=== PATIENT | male | born 1950 | race Caucasian/White ===

== ENCOUNTER → 2017-02-06 | Outpatient (CLI) | payer OTHER | END | disposition home or self-care (01) | LOC: C.PATHSPEC 17:04 | PROVIDERS: ATTEND Urology | DX: Z00.00 Encounter for general adult medical examination without abnormal findings (principal); N40.0 Benign prostatic hyperplasia without lower urinary tract symptoms; R31.0 Gross hematuria; R97.20 Elevated prostate specific antigen [PSA] ==

== ENCOUNTER 2023-11-01 08:56 | Observation (INO) ==
--- NOTE | 2023-10-02 08:36 | PAT Medication Instructions ---
Medication Instructions Date of Service October 02, 2023 Home Medications aspirin 81 mg tablet,delayed release (Aspir-) 81 mg PO QAM esomeprazole magnesium 40 mg capsule,delayed release (Nexium) 40 mg PO QAM apixaban 2.5 mg tablet (Eliquis) 2.5 mg PO BID ascorbic acid (vitamin C) 500 mg capsule 500 mg PO QAM bempedoic acid 180 mg tablet (Nexletol) 180 mg PO QAM carbidopa 25 mg-levodopa 100 mg tablet 1 tab PO TID cholecalciferol (vitamin D3) 125 mcg (5,000 unit) capsule 125 mcg PO QAM metoprolol tartrate 50 mg tablet 50 mg PO BID ramipril 2.5 mg capsule (Altace) 5 mg PO QAM zinc sulfate 50 mg zinc (220 mg) capsule 50 mg PO HS albuterol 90 mcg/actuation aerosol inhaler 90 mcg inhalation UD PRN cetirizine 10 mg tablet (Zyrtec) 10 mg PO HS latanoprost 0.005 % eye drops 1 drp ophthalmic (eye) QPM trihexyphenidyl 2 mg tablet 2 mg PO BID vitamin A-vitamin C-vit E-min tablet 1 tab PO QAM Continue as directed albuterol 90 mcg/actuation aerosol inhaler 90 mcg inhalation UD PRN(use if needed; please bring with you to hospital day of surgery if possible) ASK your prescriber and surgeon aspirin 81 mg tablet,delayed release (Aspir-) 81 mg PO QAM apixaban 2.5 mg tablet (Eliquis) 2.5 mg PO BID(in order for spinal or epidural anesthesia, Eliquis needs to be stopped 72 hours/3 days before surgery. Please check if okay with doctor that prescribes this to you) STOP taking 2 weeks before surgery (or as soon as possible if surgery is within 2 weeks) vitamin A-vitamin C-vit E-min tablet 1 tab PO QAM DO NOT take the morning of surgery ramipril 2.5 mg capsule (Altace) 5 mg PO QAM cholecalciferol (vitamin D3) 125 mcg (5,000 unit) capsule 125 mcg PO QAM ascorbic acid (vitamin C) 500 mg capsule 500 mg PO QAM Take morning of surgery With a small sip of water, OTHERWISE NOTHING TO EAT OR DRINK AFTER MIDNIGHT: trihexyphenidyl 2 mg tablet 2 mg PO BID metoprolol tartrate 50 mg tablet 50 mg PO BID carbidopa 25 mg-levodopa 100 mg tablet 1 tab PO TID bempedoic acid 180 mg tablet (Nexletol) 180 mg PO QAM esomeprazole magnesium 40 mg capsule,delayed release (Nexium) 40 mg PO QAM Take evening before surgery trihexyphenidyl 2 mg tablet 2 mg PO BID latanoprost 0.005 % eye drops 1 drp ophthalmic (eye) QPM cetirizine 10 mg tablet (Zyrtec) 10 mg PO HS zinc sulfate 50 mg zinc (220 mg) capsule 50 mg PO HS metoprolol tartrate 50 mg tablet 50 mg PO BID carbidopa 25 mg-levodopa 100 mg tablet 1 tab PO TID Other Notes If you have any questions please call us at [phone] or [phone] or [phone] or [phone]
--- NOTE | 2023-10-07 13:01 | Anesthesiology Consultation ---
Date of Service October 07, 2023 Assessment & Plan (1) Encounter for pre-operative examination: - Infectious disease screening: Per assessment on 10/07/23: No known infectious disease contacts or current infectious disease symptoms. No noted recent Covid positive test result. - Outpatient joint assessment: Pt currently scheduled for inpatient pathway. If surgeon requests review for outpatient joint pathway, patient is not recommended candidate for outpatient joint program from anesthesia standpoint. - Apixaban instructions: patient made aware that for neuraxial anesthesia, Apixaban needs to be held 72 hours prior to surgery. Patient voiced understanding/will check if okay with prescriber. - Awaiting upcoming cardiology-ordered Echo ([facility] scheduled 10/09) and cardiology visit ([facility], scheduled 10/23). Chart Review Chart Review: Patient seen in Pre Admission Testing Teaching & Discussion Pre-Anesthesia Teaching/Discussion Notes: Instructed NPO after midnight before surgery,except medications with 15 cc of water. Medication instructions provided according to the PAT guidelines. History Surgery Operation Date: 11/01/23 09:25 Proposed Procedures p Left Total Knee Arthroplasty - Walter Duron DO Height/Weight Height: 5 ft 10 in Weight: 119.8 kg Allergies Allergy/AdvReac Type Severity Reaction Status Date / Time amoxicillin [From Augmentin] Allergy Unknown Hives Verified 10/01/23 12:35 clavulanic acid Allergy Unknown Hives Verified 10/01/23 12:35 [From Augmentin] clarithromycin [From Biaxin] AdvReac Unknown Vomiting Verified 10/01/23 12:35 Medications Home Medications Medication Instructions Recorded Confirmed Last Taken aspirin 81 mg tablet,delayed 81 mg PO QAM 06/18/19 10/01/23 Unknown release (Aspir-) esomeprazole magnesium 40 mg 40 mg PO QAM 06/18/19 10/01/23 Unknown capsule,delayed release (Nexium) apixaban 2.5 mg tablet (Eliquis) 2.5 mg PO BID 04/18/22 10/01/23 Unknown ascorbic acid (vitamin C) 500 mg 500 mg PO QAM 04/18/22 10/01/23 Unknown capsule bempedoic acid 180 mg tablet 180 mg PO QAM 04/18/22 10/01/23 Unknown (Nexletol) carbidopa 25 mg-levodopa 100 mg 1 tab PO TID 04/18/22 10/01/23 Unknown tablet cholecalciferol (vitamin D3) 125 125 mcg PO QAM 04/18/22 10/01/23 Unknown mcg (5,000 unit) capsule metoprolol tartrate 50 mg tablet 50 mg PO BID 04/18/22 10/01/23 Unknown ramipril 2.5 mg capsule (Altace) 5 mg PO QAM 04/18/22 10/01/23 Unknown zinc sulfate 50 mg zinc (220 mg) 50 mg PO HS 04/18/22 10/01/23 Unknown capsule albuterol 90 mcg/actuation aerosol 90 mcg inhalation UD PRN allergies 10/01/23 10/01/23 Unknown inhaler cetirizine 10 mg tablet (Zyrtec) 10 mg PO HS 10/01/23 10/01/23 Unknown latanoprost 0.005 % eye drops 1 drp ophthalmic (eye) QPM 10/01/23 10/01/23 Unknown trihexyphenidyl 2 mg tablet 2 mg PO BID 10/01/23 10/01/23 Unknown vitamin A-vitamin C-vit E-min 1 tab PO QAM 10/01/23 10/01/23 Unknown tablet Past Medical History Medical History Acid reflux CAD (coronary artery disease) 2005- stent x1 Follows with [facility] Chronic anemia Hgb baseline in the 12s per 2022 PCP labs Claustrophobia Environmental allergies History of DVT (deep vein thrombosis) RLE 2013 > Chronic occlusion Taking Apixaban History of elevated PSA Hyperlipidemia Noted per cardiology records, patient unsure Increased pressure in the eye No official glaucoma diagnosis per patient Kidney stones Hx Obesity Parkinson disease PVC (premature ventricular contraction) Exercise / Class Metabolic Activity II 4-5 Yardwork/Stairs/Walk up hill (one FS (no CP, no SOB)) Past Family History Family History Family/Other Heart disease Hypertension FH: uterine cancer Past Surgical History Surgical History History of arthroscopy of left knee History of arthroscopy of right knee History of cardiac cath 2001- no stents 2005- stent x1 History of colonoscopy History of detached retina repair Right (chronic right pupil dilation since) ~2006 History of eye surgery Left ("preventative for detached retina") History of MRI of brain and brain stem Brain MRI with anesthesia 06/2023- switched neurologist providers so new neur ologist wanted updated imaging/unremarkable findings Past Anesthesia History No Hx of Anesthesia Complications and No Family Hx of Anesthesia Complications History of PONV No Hx of PONV and No Hx of Motion Sickness Social History Smoking Status: Heavy tobacco smoker Do You Dip or Chew Tobacco: No Smoking End Date: Quit 20 years ago Hx Alcohol Use: Yes alcohol intake frequency: other (minimal/beer once a month at most) Hx Substance Use: No substance use type: does not use Review of Systems Patient denies chest pain, shortness of breath, dyspnea on exertion, fever, chills, cough, wheezing, palpitations. Physical Exam Vital Signs VITALS BP 125/78 P 64 TEMP 97.8 SP02 96%RA RESP 18 PHYSICAL Full cervical extension range of motion. Full TMJ range of motion. 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) Lab Results Anesthesia Preop Results Results Anesthesia Widget: WBC 7.93 K/ul (4.8-10.8) 10/07/23 Hgb 12.7 g/dl (14.0-18.0) L 10/07/23 Hct 38.5 % (42.0-52.0) L 10/07/23 Plt 283 K/uL (130-400) 10/07/23 Na 140 mmol/L (136-145) 10/07/23 K 4.3 mmol/L (3.5-5.1) 10/07/23 Cl 105 mmol/L (98-107) 10/07/23 CO2 28 mmol/L (21-32) 10/07/23 BUN 15 mg/dl (6-23) 10/07/23 Creat 1.02 mg/dl (0.6-1.4) 10/07/23 Glucose Level 93 mg/dl (70-99(Fasting)) 10/07/23 PT 11.8 Seconds (9.0-12.0) 10/07/23 PTT 29 Seconds (21-31) 10/07/23 INR 1.1 (0.9-1.1) 10/07/23 Blood Type A Positive 10/07/23 Antibody Screen NEGATIVE 10/07/23 Testing Electrocardiogram Date: 10/07/23 NSR at 64bpm. "Normal ECG" Chest X-Ray Date: 10/07/23 FINDINGS: Lung volumes are normal. Lungs are clear. There is no pneumothorax or pleural effusion. Cardiac size is at the upper limits of normal. Mediastinal contours are normal. There is no evidence for pulmonary edema. IMPRESSION: No acute cardiopulmonary findings. Stress Test Date: 10/16/18 "Stress Echocardiogram- (10/16/2018) No ischemia or infarct, EF 60%" per received 07/2022 cardiology office visit note. Attempts to obtain official report unsuccessful.
--- NOTE | 2023-10-30 07:42 | History & Physical Report ---
Date of Service October 30, 2023 Assessment & Plan (1) Osteoarthritis of left knee: We will proceed with a left total knee arthroplasty. Postoperatively he will be started on Eliquis for DVT prophylaxis and kept overnight in the hospital for postoperative medical management. He plans to have home health in [place] upon discharge. History of Present Illness Chief Complaint: Osteoarthritis of the left knee. Primary Care Provider: Hannah Santos DO Jeff is a pleasant 73-year-old male who has been dealing with chronic increasing bilateral knee pain with the left worse than the right. He has a history of left knee arthroscopy. He continues to have pain. He has been treated up in [place]. He has had extensive conservative treatment including multiple injections. He is still struggling with the knee. X-rays and clinical examination been diagnostic for chronic worsening osteoarthritis of the left knee. After failing conservative treatment, he has elected proceed with a left total knee arthroplasty. Allergies Allergy/AdvReac Type Severity Reaction Status Date / Time amoxicillin [From Augmentin] Allergy Unknown Hives Verified 10/01/23 12:35 clavulanic acid Allergy Unknown Hives Verified 10/01/23 12:35 [From Augmentin] clarithromycin [From Biaxin] AdvReac Unknown Vomiting Verified 10/01/23 12:35 Home Medications Medication Instructions Recorded Confirmed Type aspirin 81 mg tablet,delayed 81 mg PO QAM 06/18/19 10/01/23 History release (Aspir-) esomeprazole magnesium 40 mg 40 mg PO QAM 06/18/19 10/01/23 History capsule,delayed release (Nexium) apixaban 2.5 mg tablet (Eliquis) 2.5 mg PO BID 04/18/22 10/01/23 History ascorbic acid (vitamin C) 500 mg 500 mg PO QAM 04/18/22 10/01/23 History capsule bempedoic acid 180 mg tablet 180 mg PO QAM 04/18/22 10/01/23 History (Nexletol) carbidopa 25 mg-levodopa 100 mg 1 tab PO TID 04/18/22 10/01/23 History tablet cholecalciferol (vitamin D3) 125 125 mcg PO QAM 04/18/22 10/01/23 History mcg (5,000 unit) capsule metoprolol tartrate 50 mg tablet 50 mg PO BID 04/18/22 10/01/23 History ramipril 2.5 mg capsule (Altace) 5 mg PO QAM 04/18/22 10/01/23 History zinc sulfate 50 mg zinc (220 mg) 50 mg PO HS 04/18/22 10/01/23 History capsule albuterol 90 mcg/actuation aerosol 90 mcg inhalation UD PRN allergies 10/01/23 10/01/23 History inhaler cetirizine 10 mg tablet (Zyrtec) 10 mg PO HS 10/01/23 10/01/23 History latanoprost 0.005 % eye drops 1 drp ophthalmic (eye) QPM 10/01/23 10/01/23 History trihexyphenidyl 2 mg tablet 2 mg PO BID 10/01/23 10/01/23 History vitamin A-vitamin C-vit E-min 1 tab PO QAM 10/01/23 10/01/23 History tablet 3-in-1 Commode #1 ea 10/09/23 Rx Past Med/Surg History Medical History Chronic anemia Hgb baseline in the 12s per 2022 PCP labs Obesity CAD (coronary artery disease) 2005- stent x1 Follows with [facility] Increased pressure in the eye No official glaucoma diagnosis per patient Claustrophobia History of elevated PSA Environmental allergies PVC (premature ventricular contraction) History of DVT (deep vein thrombosis) RLE 2012 > Chronic occlusion Taking Apixaban Acid reflux Parkinson disease Kidney stones Hx Hyperlipidemia Noted per cardiology records, patient unsure Surgical History History of MRI of brain and brain stem Brain MRI with anesthesia 06/2023- switched neurologist providers so new neurologist wanted updated imaging/unremarkable findings History of eye surgery Left ("preventative for detached retina") History of detached retina repair Right (chronic right pupil dilation since) ~2006 History of arthroscopy of left knee History of arthroscopy of right knee History of colonoscopy History of cardiac cath 2000- no stents 2005- stent x1 Family History Family/Other Heart disease Hypertension FH: uterine cancer Social History Smoking Status: Heavy tobacco smoker Tobacco Type: Cigarettes Do You Dip or Chew Tobacco: No; Hx Alcohol Use: Yes Hx Substance Use: No Preferred Language: [place]at[place] Communication Ability: Effective Communication Ability Comment: pt gives verbal perm for to do phone int/requests added as hippa. Boarder Steam Required: No Beliefs That Will Affect Care: None marital status: Current Living Situation: Spouse Feels Safe at Home: Yes Assistive Devices: Glasses Review of Systems All systems reviewed & are unremarkable except as noted in HPI & below. Physical Exam On physical examination left knee, he has a slight varus deformity. He has tenderness to palpation over the medial joint line and over the distal medial femoral condyle.. Constitutional WD/WN, vitals as above Eyes PERRL, conjunctivae normal, anicteric sclerae ENMT external ear and nose normal, oropharynx normal Neck trachea midline, no thyromegaly Respiratory normal respiratory effort Cardiovascular RRR, no murmur, no edema Gastrointestinal (Abdomen) normal bowel sounds, soft, nontender, no hepatosplenomegaly Psychiatric A+Ox3, euthymic affect Results & Data Results & Data Laboratory Results . Diagnostic Findings X-rays of the left knee show advanced osteoarthritis with joint space narrowing, osteophyte formation, and [id number] articulation. PG Care Time/CCT Total # of Minutes Spent Total Time Spent with Patient: Total time spent is greater than 50% in coordination of care (as documented) at patient's floor/unit and/or counseling patient: Coding Level of Care Code None Diagnoses Osteoarthritis of left knee M17.12
[~2023-11-01 08:56] MED LIST: BUPIVACAINE 0.5 % 5 MG/1 ML PF 10ML VIAL ONE; ROPIVACAINE 0.5% 5 MG/ML 30 ML VIAL ONE; ceFAZolin 2000MG 2,000 MG/15 ML SYR IV SCH
[2023-11-01] MEDS ORDERED: PROPOFOL IV EMULSION 10 MG/ML 20 ML VIAL IV ONE ×2 (09:58→11:51)
[2023-11-01] MEDS ORDERED: MIDAZOLAM HCL 1 MG/ML 2ML VIAL ONE ×2 (09:58)
[2023-11-01] MEDS ORDERED: ONDANSETRON INJ 2 MG/ML 2 ML VIAL ONE (09:58)
[2023-11-01] MEDS: LR 60ML/HR IV SCH (10:24)
[2023-11-01] MEDS: LR 500ML BOLUS, THEN 15ML/HR IV SCH (10:24)
[2023-11-01] MEDS: GABAPENTIN 300 MG CAP PO SCH (10:26)
[2023-11-01] MEDS: FAMOTIDINE 20 MG TAB PO SCH (10:26)
[2023-11-01] MEDS: ACETAMINOPHEN 500 MG TAB PO SCH ×2 (10:26→14:26)
[2023-11-01] MEDS: dexAMETHasone**PF** 10 MG/ML VIAL IV SCH (10:26)
[2023-11-01] MEDS ORDERED: Nursing to Pharmacy Communication SCH (10:30)
[2023-11-01] MEDS: TRANEXAMIC ACID 1,000 MG **IV Pre-op IV SCH (11:07)
--- NOTE | 2023-11-01 11:13 | History & Physical Bridge Note ---
Date of Service November 01, 2023 History & Physical Bridge Note I have examined the patient, reviewed the History & Physical and in the interval since the performance of the History & Physical I have noted the following changes of clinical significance: no changes noted
[2023-11-01] MEDS ORDERED: fentaNYL citrate PF 100 MCG/2 ML VIAL ONE (11:41)
[2023-11-01] MEDS: ceFAZolin 2000MG 2,000 MG/15 ML SYR IV SCH ×2 (11:49→18:33)
[2023-11-01] MEDS: ROPIV 0.5% 246mg, Ketorolac 30mg, EPINEPHrine 0.5mg in NSS INFIL SCH (11:50)
[2023-11-01] MEDS ORDERED: ePHEDrine sulfate 50 MG/5 ML SYR ONE (11:51)
[2023-11-01] MEDS: TRANEXAMIC ACID 1,000 MG **IV Intra-op IV SCH (12:26)
--- NOTE | 2023-11-01 12:32 | Operative Report ---
PG Post Operative Report Pre & Post Diagnosis Operation Date: 11/01/23 11:00 Pre-Op Diagnosis: Left Knee Degenerative Joint Disease Post-Op Diagnosis: Left Knee Degenerative Joint Disease I identified the patient and participated in the time-out.: Yes Procedure Operation Date: 11/01/23 11:00 Actual Procedures p Left Total Knee Arthroplasty(Left) - Walter Duron DO Surgeon Walter Duron DO Senior Landscape Architect Walter Hillman PA-C Estimated Blood Loss 30 Findings Consistent with Post-Op Diagnosis Specimens Left femoral tibial bone Description of Procedure Implants used: I used a Arnol Persona total knee arthroplasty system with a size 9 standard PS femur, F tibia, 34 oval patella, and a size 12 CPS polyethylene bearing. All components were cemented in place with Biomet cement. Jeff nereida [facility] for the above procedure. He was seen in the preoperative holding area and the operative extremity was identified and signed. He was given a preoperative antibiotic, TXA, a spinal anesthetic and an adductor nerve block. He was taken back to the operating room and laid on the table in supine position. He was given basic sedation. The operative knee was then prepped and draped in sterile fashion. A timeout was done, and the patient and the operative extremity was properly identified. A midline incision was made directly over the patella. Dissection was taken down to the extensor mechanism. A medial parapatellar arthrotomy was used. The medial retinaculum was released and the fat pad was mostly excised. The knee was flexed and the ACL, PCL, and meniscus were removed. A drill was sent down the center of the femoral canal followed by an intramedullary carmine. Off that carmine a distal femoral cutting block was placed. 9 mm was resected off the distal femur at 5 of valgus. A posterior referencing AP sizing guide was then placed on the distal femur. The femur measured to be a size 9. 2 drill holes were placed in 3 of external rotation. A 4-in-1 cutting block was then impacted into place. Anterior, posterior, and chamfer cuts were then made. The proximal tibia was then exposed. An external tibial alignment guide was placed. A tibial cut guide was then anchored in place and the proximal tibia was then resected. The posterior aspect of the knee was then opened up and any additional meniscus fragments and osteophytes were removed. The tibia measured to be a size F. The tibial plate was then placed in the appropriate rotation and the tibia was drilled and punched. Trial components were then placed. I used a size 12 CPS polyethylene insert. The knee was brought through a full range of motion and felt to be stable. The peg holes for the femoral component were then drilled. The patella was then everted and 9 mm was resected off the posterior aspect of the patella. The patella measured to be a size 34 oval. 3 peg holes were then drilled. A trial patella was placed. The knee was once again brought through a full range of motion and felt to be stable. Trial components were then removed. The surrounding soft tissues were injected with 100 cc of an orthopedic pain control cocktail. All components were then cemented into place with Biomet cement. The final polyethylene insert was then snapped into place. Once cement was dry the tourniquet was deflated. Hemostasis was obtained. A dilute betadyne lavage was then done for 3 minutes. The joint was then irrigated with normal saline solution. The medial parapatellar arthrotomy was then closed with #1 Vicryl suture. The skin was closed with 2-0 Vicryl, 3-0V lock suture, and joanna. A soft compressive dressing was placed. He was then transferred to a hospital bed and taken to the postanesthesia care unit in stable condition. He tolerated the procedure well. Walter Hillman PA-C, was present for the entire procedure. He was critical for patient positioning, prepping, draping, retraction exposure, wound closure and application of sterile dressing. I attest to the content of the Intraoperative Record and any orders documented therein. Any exceptions are noted below.
--- NOTE | 2023-11-01 13:19 | Anesthesiology Progress Note ---
Date of Service November 01, 2023 Anesthesia Post Procedure Vital Signs Vital Signs: Temp Pulse Resp BP Pulse Ox O2 Del Method O2 Flow Rate 11/01/23 13:10 56 L 17 111/64 100 Oxymask 4 11/01/23 13:00 58 L 14 112/59 L 100 Oxymask 6 11/01/23 12:52 36.6 C 64 16 106/63 98 Oxymask 6 11/01/23 09:50 37.0 C 59 L 20 140/90 97 Room Air Transfer of Care Handoff Completed per policy Notes Mental Status: alert / awake / arousable and participated in evaluation Patient Amnestic to Procedure: Yes Nausea / Vomiting: adequately controlled Pain: adequately controlled Airway Patency, RR, SpO2: stable & adequate BP & HR: stable & adequate Hydration State: stable & adequate Neuraxial Anesthesia: was administered and sensory block is resolving Anesthetic Complications: no major complications apparent and Pt Satisfied with anesthetic care
[2023-11-01] MEDS ORDERED: HYDROmorphone INJ 0.5 MG/0.5 ML SYR IV PRN (13:23)
[2023-11-01] MEDS ORDERED: MAGNESIUM HYDROXIDE SUSP 30 ML UDC PO PRN (13:23)
[2023-11-01] MEDS ORDERED: ONDANSETRON INJ 2 MG/ML 2 ML VIAL IV PRN (13:23)
[2023-11-01] MEDS ORDERED: bisacodyL 10 MG SUPP PR PRN (13:23)
[2023-11-01] MEDS ORDERED: NALOXONE HCL 0.4 MG/1 ML VIAL/CARP IV PRN (13:23)
[2023-11-01] MEDS ORDERED: METOCLOPRAMIDE HCL INJ 5 MG/ML 2 ML VIAL IV PRN (13:23)
[2023-11-01] MEDS: ORTHO JOINT ANESTHETIC ONE (13:24)
--- NOTE | 2023-11-01 13:35 | XRay Report ---
XR knee LT 1 or 2V routine CLINICAL HISTORY: Postoperative evaluation. COMPARISON: Left knee radiographs August 13, 2023. FINDINGS: Alignment of the total left knee arthroplasty is anatomic. There is no periprosthetic frac ture or unexpected radiopaque foreign body. There are skin joanna. IMPRESSION: Expected findings following total left knee arthroplasty. ACT 112: Negative or not required by law. Electronically signed by: Cristian Cortez M.D. 11/01/2023 1:33 PM
[2023-11-01] MEDS ORDERED: ALBUTEROL HFA 8 GM INHALER INH PRN (13:58)
[2023-11-01] MEDS: SODIUM CHLORIDE 0.9% 1,000 ML IV SCH (14:00)
[2023-11-01] MEDS: KETOROLAC TROMETHAMINE 15 MG/ML VIAL IV SCH (14:27)
[2023-11-01] MEDS: CARBIDOPA/LEVODOPA 25/100MG TAB PO SCH (14:27)
[2023-11-01] MEDS: ALLERGY Noted to ORDERED Medication SCH (14:36)
[2023-11-01] MEDS: DOCUSATE SODIUM 100 MG CAP PO SCH (20:46)
[2023-11-01] MEDS: SENNA 8.6 MG TAB PO SCH (20:46)
[2023-11-01] MEDS: ZINC SULFATE 220 MG CAPSULE PO SCH (20:49)
[2023-11-01] MEDS: TRIHEXYPHENIDYL HCL 2 MG TAB PO SCH (20:49)
[2023-11-01] MEDS: CETIRIZINE HCL 10 MG TABLET PO SCH (20:49)
[2023-11-01] MEDS: METOPROLOL TARTRATE 50 MG TAB PO SCH (20:49)
[2023-11-01] MEDS ORDERED: ZINC SULFATE 220 MG CAPSULE PO SCH (21:00)
[2023-11-01] MEDS: LATANOPROST 0.005% OP SOLN 2.5 ML BTL OP SCH (22:56)
[2023-11-01] MEDS: oxyCODONE HCL IR 5 MG TAB (IMMEDIATE RELEASE) PO PRN (23:08)
--- NOTE | 2023-11-02 06:33 | Orthopedic Progress Note ---
Date of Service November 02, 2023 Assessment & Plan (1) Status post left knee replacement: Overall he is doing very well. He is not having much pain in the left knee. He will be seen by physical therapy today for ambulation and range of motion exercises. He is on Eliquis for DVT prophylaxis. The dressing can be changed after physical therapy today. He can be discharged home later this morning. He will follow-up with orthopedics in 2 weeks. Norman Aguilar was seen and examined at bedside this morning. Overall he is doing very well. He is not having much pain in the left knee. He has been up and ambulating to the bathroom. He has no complaints.. Review of Systems All systems reviewed & are unremarkable except as noted in HPI & below. Physical Exam On physical examination of the left knee, the dressing is clean and dry. His legs out full extension. He has active dorsiflexion plantarflexion of his left ankle.. Results & Data Results & Data Laboratory Results . Diagnostic Findings Postoperative x-rays of the left knee show the prosthesis to be in anatomic alignment without any evidence of fracture complication, or loosening.. PG Care Time/CCT Total # of Minutes Spent Total Time Spent with Patient: Total time spent is greater than 50% in coordination of care (as documented) at patient's floor/unit and/or counseling patient: Coding Level of Care Code 68267 Post Operative Follow-Up Diagnoses Status post left knee replacement Z96.652
--- NOTE | 2023-11-02 06:34 | Discharge Summary ---
Date of Service November 02, 2023 Admission HPI (Per Admitting) Jeff is a pleasant 73-year-old male who has been dealing with chronic increasing bilateral knee pain with the left worse than the right. He has a history of left knee arthroscopy. He continues to have pain. He has been treated up in [place]. He has had extensive conservative treatment including multiple injections. He is still struggling with the knee. X-rays and clinical examination been diagnostic for chronic worsening osteoarthritis of the left knee. After failing conservative treatment, he has elected proceed with a left total knee arthroplasty. Admission Exam (Per Admitting) On physical examination left knee, he has a slight varus deformity. He has tenderness to palpation over the medial joint line and over the distal medial femoral condyle.. Principal Diagnosis Same as "Discharge Diagnosis" noted below under Discharge Instructions. Discharge Exam On physical examination of the left knee, the dressing is clean and dry. His legs out full extension. He has active dorsiflexion plantarflexion of his left ankle.. Discharge Data Procedures Performed Operation Date: 11/01/23 11:00 Actual Procedures p Left Total Knee Arthroplasty(Left) - Walter Duron DO Ordered Studies 11/01/23 05:00 US - OR guided needle placemen Routine Hospital Course (1) Status post left knee replacement: On November 01, [address] [facility] and underwent a left knee replacement without complication. He had a spinal anesthetic. Postope ratively he was started on Eliquis for DVT prophylaxis and transferred to the general orthopedic floors. His hospital course was uneventful. On postop day #1, his vital signs were stable and his pain was well-controlled. He was able to participate well with physical therapy doing ambulation and range of motion exercises. He was then discharged home. He will follow-up with orthopedics in 2 weeks. PG Care Time/CCT Total # of Minutes Spent Total Time Spent with Patient: Total time spent is greater than 50% in coordination of care (as documented) at patient's floor/unit and/or counseling patient: Discharge Plan Discharge Items Patient Disposition: Home - Self-Care Reason For Visit: Left Knee Degenerative Joint Disease Discharge Diagnosis: Left knee replacement Activity: Per Instructions section Non-emergency contact: Surgeon Call non-emergency contact if: your wound has increased redness and your wound has increased drainage Follow-up/Referrals: Hannah Santos DO [Primary Care Provider] - Diet: Regular Addtl Attending Provider Instructions: Activity and Therapy Recommendations: * If you are using [facility] then therapy will be provided at your home until they feel you have accomplished all of your goals. * If you are using [facility] then Physical Therapy will be provided until they feel you are ready to start Outpatient Physical Therapy. * If you are not using home therapy then Outpatient Physical Therapy should start about 3-5 days from your day of surgery. Therapy will last about 6-10 weeks * It is important not to put a pillow under your knee when you are relaxing or sleeping. It is just as important to make sure you are getting your knee perfectly straight as it is to regain your knee bend. * You were shown a series of exercises in the hospital. Do these exercises three times each day including the exercises you were shown in physical therapy. * Get up and walk several times each day. For the first four weeks, try not to stand or walk for more than one hour at a time. If you do stand or walk for more than one hour, you will not hurt anything, but your leg will likely swell. * As you feel comfortable, you may change from the walker or crutches to a cane and then to independent walking. Medications: * Narcotic You will likely be sent home from the hospital with a prescription for the narcotic pain medication that worked best throughout your stay. * Cefadroxil -take the antibiotic twice a day for 10 days to help prevent infection. * Eliquis -continue Eliquis as prescribed * Other medications may be prescribed for specific circumstances. If you have any questions, please call the office at . * Resume previous home medications unless otherwise instructed TEDs/Elastic Stockings: The white elastic stockings help limit swelling and prevent blood clots from forming in your legs.~ The more you wear them, the more they work. Wear them for six weeks. Dressing Care: The dressing can be changed after physical therapy on postop day #1. Daily dry dressing changes for a few days, especially if the incision is still draining some. If the incision is not draining then you may leave the joanna open to air. If there is a little bit of drainage or if the joanna are getting stuck on your clothing then cover the incision with a dry dressing. The joanna will be removed at your 2 week follow-up appointment. Showering: You may shower 5 days from the day of surgery as long as the incision is no longer draining. You may shower with the joanna exposed. Let soapy water run over the joanna and pat them dry. Do not scrub or soak the incision. Things To Watch For: * Drainage from the incision site that occurs more than one week after your surgery. * Increased redness at the incision site. * Fever above 102 degrees Fahrenheit. * Unusual chest pain or shortness of breath. * Call [facility] at with any of the above problems Follow-Up Visit: Follow-up with Dr. Duron's PA (Walter Hillman) 2-3 weeks after your day of surgery. He will remove your joanna and answer any questions. If you have any additional questions or concerns, Dr Duorn is usually in the office at the same time and will be available An appointment was probably scheduled when you signed-up for surgery in the office. If you have any questions call Office Instructions: More detailed instructions as well as Frequently Asked Questions were provided in a folder by our office when you signed-up for surgery. Please review these instructions when you get home. If you have any further questions or concerns, please feel free to call the office at [phone] Pending Studies at Discharge: No Stand-Alone Forms: My [facility], Smoking Cessation Medications and DC Order Prescriptions: New oxycodone 5 mg Tablet 5 mg PO Q4H PRN (Reason: pain) Qty: 30 0RF cefadroxil 500 mg capsule 500 mg PO BID 10 Days Qty: 20 0RF Continued (DME) 3-in-1 Commode Misc See Rx Instructions .MEDSUPPLY Qty: 1 0RF Rx Instructions: As directed Eliquis 2.5 mg tablet 2.5 mg PO BID Nexletol 180 mg tablet 180 mg PO QAM metoprolol tartrate 50 mg tablet 50 mg PO BID carbidopa-levodopa 25-100 mg tablet 1 tab PO TID zinc sulfate 50 mg zinc (220 mg) capsule 50 mg PO HS ascorbic acid (vitamin C) 500 mg capsule 500 mg PO QAM cholecalciferol (vitamin D3) 125 mcg (5,000 unit) capsule 125 mcg PO QAM aspirin [Aspir-81] 81 mg tablet,delayed release (DR/EC) 81 mg PO QAM esomeprazole magnesium [Nexium] 40 mg capsule,delayed release(DR/EC) 40 mg PO QAM ramipril [Altace] 2.5 mg capsule 5 mg PO QAM cetirizine [Zyrtec] 10 mg Tablet 10 mg PO HS latanoprost 0.005 % Drops 1 drp OPHTHALMIC (EYE) QPM Patient Comments: BOTH EYES trihexyphenidyl 2 mg Tablet 2 mg PO BID Ocuvite Tablet 1 tab PO QAM albuterol 90 mcg/actuation Aerosol 90 mcg INHALATION UD PRN (Reason: allergies) Patient Comments: not much use/no recent Discharge Orders: Discharge Order (Routine); Ordered 11/02/23 Ordered By: Walter Duron Admission Data Admit Date/Time: 11/01/23 12:53 Attending Provider: Walter Duron Admit Provider: Walter Duron Primary Care Provider: Hannah Santos
[2023-11-02] MEDS: ENALAPRIL MALEATE 10 MG TAB PO SCH (07:39)
[2023-11-02] MEDS: CEROVITE ADV FORMULA TAB PO SCH (07:40)
[2023-11-02] MEDS: dexAMETHasone 4 MG TAB PO SCH (07:40)
[2023-11-02] MEDS: PANTOprazole 40 MG TAB PO SCH (07:40)
[2023-11-02] MEDS: ASPIRIN 81 MG ECTAB PO SCH (07:40)
[2023-11-02] MEDS: APIXABAN 2.5 MG TAB PO SCH (07:40)
[2023-11-02] MEDS: MULTIVITAMIN TAB PO SCH (07:40)
== END 2023-11-02 11:21 | disposition home health service (06) ==
LOC: ASU 08:56 → 3E 08:56
DX: I25.10 Atherosclerotic heart disease of native coronary artery without angina pectoris; Z79.01 Long term (current) use of anticoagulants; E66.9 Obesity, unspecified; Z88.1 Allergy status to other antibiotic agents; Z79.82 Long term (current) use of aspirin; Z79.899 Other long term (current) drug therapy; M17.12 Unilateral primary osteoarthritis, left knee; M25.762 Osteophyte, left knee; E78.5 Hyperlipidemia, unspecified; Z95.5 Presence of coronary angioplasty implant and graft; Z88.0 Allergy status to penicillin; I49.3 Ventricular premature depolarization; Z87.891 Personal history of nicotine dependence; K21.9 Gastro-esophageal reflux disease without esophagitis; M65.9 Synovitis and tenosynovitis, unspecified; Z86.718 Personal history of other venous thrombosis and embolism; Z68.37 Body mass index [BMI] 37.0-37.9, adult; G20.A1 Parkinson's disease without dyskinesia, without mention of fluctuations

== ENCOUNTER 2024-06-05 06:29 | Observation (INO) ==
--- NOTE | 2024-05-05 14:58 | PAT Medication Instructions ---
Medication Instructions Date of Service May 05, 2024 Home Medications Medication Instructions Recorded 3-in-1 Commode #1 ea 10/09/23 Medication List: aspirin 81 mg tablet,delayed release (Aspir-) 81 mg PO QAM esomeprazole magnesium 40 mg capsule,delayed release (Nexium) 40 mg PO QAM apixaban 2.5 mg tablet (Eliquis) 2.5 mg PO BID ascorbic acid (vitamin C) 500 mg capsule 500 mg PO QAM bempedoic acid 180 mg tablet (Nexletol) 180 mg PO QAM carbidopa 25 mg-levodopa 100 mg tablet 1 tab PO TID cholecalciferol (vitamin D3) 125 mcg (5,000 unit) capsule 125 mcg PO QAM metoprolol tartrate 50 mg tablet 50 mg PO BID ramipril 2.5 mg capsule (Altace) 5 mg PO QAM zinc sulfate 50 mg zinc (220 mg) capsule 50 mg PO HS albuterol 90 mcg/actuation aerosol inhaler 90 mcg inhalation UD PRN allergies latanoprost 0.005 % eye drops 1 drp ophthalmic (eye) QPM trihexyphenidyl 2 mg tablet 2 mg PO BID vitamin A-vitamin C-vit E-min tablet (Ocutabs tablet) 1 tab PO QAM ferrous sulfate 325 mg (65 mg iron) tablet 325 mg PO QAM fexofenadine 180 mg tablet 180 mg PO HS MEDICATION INSTRUCTIONS: Continue as directed latanoprost 0.005 % eye drops 1 drp ophthalmic (eye) QPM albuterol 90 mcg/actuation aerosol inhaler 90 mcg inhalation UD PRN allergies ( use if needed; BRING TO HOSPITAL) ASK your prescriber and surgeon aspirin 81 mg tablet,delayed release (Aspir-) 81 mg PO QAM apixaban 2.5 mg tablet (Eliquis) 2.5 mg PO BID (for spinal anesthesia: will need to hold Eliquis/apixaban at least 72 hours prior to surgery) STOP taking 2 weeks before surgery vitamin A-vitamin C-vit E-min tablet (Ocutabs tablet) 1 tab PO QAM DO NOT take the morning of surgery ferrous sulfate 325 mg (65 mg iron) tablet 325 mg PO QAM cholecalciferol (vitamin D3) 125 mcg (5,000 unit) capsule 125 mcg PO QAM ramipril 2.5 mg capsule (Altace) 5 mg PO QAM ascorbic acid (vitamin C) 500 mg capsule 500 mg PO QAM Take morning of surgery With a small sip of water, OTHERWISE NOTHING TO EAT OR DRINK AFTER MIDNIGHT: esomeprazole magnesium 40 mg capsule,delayed release (Nexium) 40 mg PO QAM metoprolol tartrate 50 mg tablet 50 mg PO BID carbidopa 25 mg-levodopa 100 mg tablet 1 tab PO TID bempedoic acid 180 mg tablet (Nexletol) 180 mg PO QAM trihexyphenidyl 2 mg tablet 2 mg PO BID Take evening before surgery fexofenadine 180 mg tablet 180 mg PO HS zinc sulfate 50 mg zinc (220 mg) capsule 50 mg PO HS metoprolol tartrate 50 mg tablet 50 mg PO BID carbidopa 25 mg-levodopa 100 mg tablet 1 tab PO TID trihexyphenidyl 2 mg tablet 2 mg PO BID Other Notes If you have any questions please call us at [phone] or [phone] or [phone] or [phone]
--- NOTE | 2024-05-13 09:38 | Anesthesiology Consultation ---
Date of Service May 13, 2024 Assessment & Plan (1) Encounter for pre-operative examination: - awaiting PCP optimization response regarding anemia as his notes patient is due for iron level and PCP review. - cardiology office visit 10/15/23: "...preoperative cardiac clearance...follow up of coronary artery disease...on guideline directed medical therapy...do not recommend further invasive or noninvasive cardiovascular testing or procedures prior to proceeding with planned left knee surgery...well optimized from a cardiac standpoint..." - Outpatient joint assessment: Patient is currently scheduled for inpatient pathway. If re-evaluated and patient/surgeon requests outpatient pathway, patient is not recommended candidate for outpatient joint program from anesthesia standpoint. Chart Review Chart Review: Pending: Refer to Additional Notes / Consult section and Patient seen in Pre Admission Testing Teaching & Discussion Pre-Anesthesia Teaching/Discussion Notes: Instructed NPO after midnight before surgery, except medications with 15 cc of water. Medication instructions provided according to the PAT guidelines. History Surgery Operation Date: 06/05/24 07:00 Proposed Procedures p Right Total Knee Arthroplasty - Walter Duron DO Height/Weight Height: 5 ft 10 in Weight: 119.9 kg Allergies Allergy/AdvReac Type Severity Reaction Status Date / Time amoxicillin [From Augmentin] Allergy Unknown Hives Verified 04/28/24 07:41 clavulanic acid Allergy Unknown Hives Verified 04/28/24 07:41 [From Augmentin] clarithromycin [From Biaxin] AdvReac Unknown Vomiting Verified 04/28/24 07:41 Medications Home Medications Medication Instructions Recorded Confirmed Last Taken aspirin 81 mg tablet,delayed 81 mg PO QAM 06/18/19 04/28/24 10/31/23 07:00 release (Aspir-) esomeprazole magnesium 40 mg 40 mg PO QAM 06/18/19 04/28/24 11/01/23 07:00 capsule,delayed release (Nexium) apixaban 2.5 mg tablet (Eliquis) 2.5 mg PO BID 04/18/22 04/28/24 10/28/23 ascorbic acid (vitamin C) 500 mg 500 mg PO QAM 04/18/22 04/28/24 10/31/23 07:00 capsule bempedoic acid 180 mg tablet 180 mg PO QAM 04/18/22 04/28/24 11/01/23 07:00 (Nexletol) carbidopa 25 mg-levodopa 100 mg 1 tab PO TID 04/18/22 04/28/24 11/01/23 07:00 tablet cholecalciferol (vitamin D3) 125 125 mcg PO QAM 04/18/22 04/28/24 10/31/23 07:00 mcg (5,000 unit) capsule metoprolol tartrate 50 mg tablet 50 mg PO BID 04/18/22 04/28/24 11/01/23 07:00 ramipril 2.5 mg capsule (Altace) 5 mg PO QAM 04/18/22 04/28/24 10/31/23 07:00 zinc sulfate 50 mg zinc (220 mg) 50 mg PO HS 04/18/22 04/28/24 10/18/23 capsule albuterol 90 mcg/actuation aerosol 90 mcg inhalation UD PRN allergies 10/01/23 04/28/24 Unknown inhaler latanoprost 0.005 % eye drops 1 drp ophthalmic (eye) QPM 10/01/23 04/28/24 10/31/23 21:30 trihexyphenidyl 2 mg tablet 2 mg PO BID 10/01/23 04/28/24 11/01/23 07:00 vitamin A-vitamin C-vit E-min 1 tab PO QAM 10/01/23 04/28/24 10/18/23 tablet (Ocutabs tablet) 3-in-1 Commode #1 ea 10/09/23 Unknown ferrous sulfate 325 mg (65 mg 325 mg PO QAM 04/28/24 04/28/24 Unknown iron) tablet fexofenadine 180 mg tablet 180 mg PO HS 04/28/24 04/28/24 Unknown Past Medical History Medical History (Updated 05/13/24 @ 09:[address] PA-C) Acid reflux controlled, stable per pt CAD (coronary artery disease) 2004- stent x1 Follows with [facility] Chronic anemia Hgb baseline in the 12s per 2022 PCP labs Claustrophobia Environmental allergies History of DVT (deep vein thrombosis) RLE 2012 > Chronic occlusion - patient had clearance with Dr Pabon prior to right knee arthroplasty Taking eliquis, PCP manages. History of elevated PSA Hx of renal calculi Hyperlipidemia Noted per cardiology records, patient unsure Hypertension controlled, stable per pt Increased pressure in the eye No official glaucoma diagnosis per patient Iron deficiency multiple iron infusions in past-last 5 years ago Obesity Parkinson disease well controlled per PVC (premature ventricular contraction) "irregular heartbeat" reason for metoprolol Patient denies h/o stroke, seizures, heart attack, heart failure, DM, or blood transfusions. Exercise / Class Metabolic Activity II 4-5 Yardwork/Stairs/Walk up hill (denies chest discomfort or shortness of breath one flight of stairs) Past Family History Family History Family/Other Heart disease FH: uterine cancer Hypertension Other No family history of adverse response to anesthesia Past Surgical History Surgical History History of arthroplasty of left knee History of arthroscopy of left knee History of arthroscopy of right knee History of cardiac cath 2000- no stents 2005- stent x1 History of colonoscopy History of detached retina repair Right (chronic right pupil dilation since) ~2006 History of eye surgery Left ("preventative for detached retina") History of MRI of brain and brain stem Brain MRI with anesthesia 06/2023- switched neurologist providers so new neurologist wanted updated imaging/unremarkable findings Past Anesthesia History No Hx of Anesthesia Complications and No Family Hx of Anesthesia Complications History of PONV No Hx of PONV and No Hx of Motion Sickness Social History Smoking Status: Former smoker Do You Dip or Chew Tobacco: No Smoking End Date: ~1999 Hx Alcohol Use: Yes Alcohol type: beer alcohol intake frequency: holidays/special occasions only Hx Substance Use: No substance use type: does not use Review of Systems Snoring, denies witnessed apneas. Patient denies chest pain, shortness of breath, dyspnea on exertion, fever, chills, cough, wheezing, or palpitations. Physical Exam Vital Signs Vitals BP 134/80 P 53 TEMP 97.8 SP02 95% on RA RESP 18 Physical Patient resting comfortably in chair in no acute distress, alert and oriented, responding appropriately throughout visit Full cervical extension range of motion without pain TMD 3.5 finger breadths Mallampati Score 3 Dentition: intact, denies chipped or loose teeth, caps/crowns, implants or bridg es Lungs: normal respiratory effort. Good air movement, clear throughout to auscultation, no adventitious breath sounds Cardiac: regular rate and rhythm, no murmurs noted Carotid arteries: negative bruit bilat Lab Results Anesthesia Preop Results Results Anesthesia Widget: WBC 5.96 K/ul (4.8-10.8) 05/13/24 Hgb 11.9 g/dl (14.0-18.0) L 05/13/24 Hct 36.0 % (42.0-52.0) L 05/13/24 Plt 235 K/uL (130-400) 05/13/24 Na 138 mmol/L (136-145) 05/13/24 K 4.7 mmol/L (3.5-5.1) 05/13/24 Cl 104 mmol/L (98-107) 05/13/24 CO2 29 mmol/L (21-32) 05/13/24 BUN 15 mg/dl (6-23) 05/13/24 Creat 0.82 mg/dl (0.6-1.4) 05/13/24 Glucose Level 103 mg/dl (70-99(Fasting)) H 05/13/24 PT 11.1 Seconds (9.0-12.0) 05/13/24 PTT 28 Seconds (21-31) 05/13/24 INR 1.0 (0.9-1.1) 05/13/24 Blood Type A Positive 05/13/24 Antibody Screen NEGATIVE 05/13/24 Testing Electrocardiogram Date: 10/07/23 NSR, rate 64 bpm Chest X-Ray Date: 10/07/23 No acute cardiopulmonary findings. Echocardiogram Date: 10/09/23 EF 55% No LV wall motion abnormalities No significant valvular pathology
[~2024-06-05 06:29] MED LIST changes: -BUPIVACAINE 0.5 % 5 MG/1 ML PF 10ML VIAL ONE; -ceFAZolin 2000MG 2,000 MG/15 ML SYR IV SCH
[2024-06-05] MEDS ORDERED: MIDAZOLAM HCL 1 MG/ML 2ML VIAL ONE (07:36)
[2024-06-05] MEDS ORDERED: fentaNYL citrate PF 100 MCG/2 ML VIAL ONE (07:37)
[2024-06-05] MEDS ORDERED: LIDOCAINE 2% 2 ML VIAL/AMP(20MG/ML) INFIL ONE (07:37)
[2024-06-05] MEDS ORDERED: PROPOFOL IV EMULSION 10 MG/ML 20 ML VIAL IV ONE ×6 (07:38→10:09)
[2024-06-05] MEDS: LR 500ML BOLUS, THEN 15ML/HR IV SCH (07:55)
--- NOTE | 2024-06-05 08:05 | History & Physical Bridge Note ---
Date of Service June 05, 2024 History & Physical Bridge Note I have examined the patient, reviewed the History & Physical and in the interval since the performance of the History & Physical I have noted the following changes of clinical significance: no changes noted
[2024-06-05] MEDS: ACETAMINOPHEN 500 MG TAB PO SCH ×2 (08:15→14:15)
[2024-06-05] MEDS: FAMOTIDINE 20 MG TAB PO SCH (08:15)
[2024-06-05] MEDS: GABAPENTIN 300 MG CAP PO SCH (08:15)
[2024-06-05] MEDS: dexAMETHasone**PF** 10 MG/ML VIAL IV SCH (08:17)
[2024-06-05] MEDS: LR 60ML/HR IV SCH (08:17)
[2024-06-05] MEDS: TRANEXAMIC ACID 1,000 MG **IV Pre-op IV SCH (08:50)
[2024-06-05] MEDS: ceFAZolin 2000MG 2,000 MG/15 ML SYR IV SCH ×2 (09:00→16:25)
[2024-06-05] MEDS: ROPIV 0.5% 246mg, Ketorolac 30mg, EPINEPHrine 0.5mg in NSS INFIL SCH (09:36)
[2024-06-05] MEDS: ORTHO JOINT ANESTHETIC ONE (09:37)
[2024-06-05] MEDS: TRANEXAMIC ACID 1,000 MG **IV Intra-op IV SCH (10:12)
--- NOTE | 2024-06-05 10:16 | Operative Report ---
PG Post Operative Report Pre & Post Diagnosis Operation Date: 06/05/24 09:00 Pre-Op Diagnosis: Osteoarthritis of Right Knee Post-Op Diagnosis: Osteoarthritis of Right Knee I identified the patient and participated in the time-out.: Yes Procedure Operation Date: 06/05/24 09:00 Actual Procedures p Right Total Knee Arthroplasty(Right) - Walter Duron DO Surgeon Walter Duron DO Counter Clerk Walter Hillman PA-C Estimated Blood Loss 30 Findings Consistent with Post-Op Diagnosis Specimens Right femoral and tibial Description of Procedure Implants used: I used a Arnol Persona total knee arthroplasty system with a size 8 PS standard femur, F tibia, 34 oval patella, and a size 12 CPS polyethylene bearing. All components were cemented in place with Biomet cement. Jeff nereida [facility] for the above procedure. He was seen in the preoperative holding area and the operative extremity was identified and signed. He was given a preoperative antibiotic, TXA, a spinal anesthetic and an adductor nerve block. He was taken back to the operating room and laid on the table in supine position. He was given basic sedation. The operative knee was then prepped and draped in sterile fashion. A timeout was done, and the patient and the operative extremity was properly identified. A midline incision was made directly over the patella. Dissection was taken down to the extensor mechanism. A medial parapatellar arthrotomy was used. The medial retinaculum was released and the fat pad was mostly excised. The knee was flexed and the ACL, PCL, and meniscus were removed. A drill was sent down the center of the femoral canal followed by an intramedullary carmine. Off that carmine a distal femoral cutting block was placed. 9 mm was resected off the distal femur at 5 of valgus. A posterior referencing AP sizing guide was then placed on the distal femur. The femur measured to be a size 8. 2 drill holes were placed in 3 of external rotation. A 4-in-1 cutting block was then impacted into place. Anterior, posterior, and chamfer cuts were then made. The proximal tibia was then exposed. An external tibial alignment guide was placed. A tibial cut guide was then anchored in place and the proximal tibia was then resected. The posterior aspect of the knee was then opened up and any additional meniscus fragments and osteophytes were removed. The tibia measured to be a size F. The tibial plate was then placed in the appropriate rotation and the tibia was drilled and punched. Trial components were then placed. I used a size 12 CPS polyethylene insert. The knee was brought through a full range of motion and felt to be stable. The peg holes for the femoral component were then drilled. The patella was then everted and 9 mm was resected off the posterior aspect of the patella. The patella measured to be a size 34 oval. 3 peg holes were then drilled. A trial patella was placed. The knee was once again brought through a full range of motion and felt to be stable. Trial components were then removed. The surrounding soft tissues were injected with 100 cc of an orthopedic pain control cocktail. All components were then cemented into place with Biomet cement. The final polyethylene insert was then snapped into place. Once cement was dry the tourniquet was deflated. Hemostasis was obtained. A dilute betadyne lavage was then done for 3 minutes. The joint was then irrigated with normal saline solution. The medial parapatellar arthrotomy was then closed with #1 Vicryl suture. The skin was closed with 2-0 Vicryl, 3-0V lock suture, and joanna. A soft compressive dressing was placed. He was then transferred to a hospital bed and taken to the postanesthesia care unit in stable condition. He tolerated the procedure well. Walter Hillman PA-C, was present for the entire procedure. He was critical for patient positioning, prepping, draping, retraction exposure, wound closure and application of sterile dressing. I attest to the content of the Intraoperative Record and any orders documented therein. Any exceptions are noted below.
--- NOTE | 2024-06-05 11:33 | Anesthesiology Progress Note ---
Date of Service June 05, 2024 Anesthesia Post Procedure Vital Signs Vital Signs: Temp Pulse Resp BP Pulse Ox O2 Del Method O2 Flow Rate 06/05/24 11:15 36.5 C 74 16 118/64 93 Room Air 06/05/24 11:05 73 16 118/66 97 Room Air 06/05/24 10:55 79 20 118/65 97 Oxymask 4 06/05/24 10:45 80 16 110/62 98 Oxymask 6 06/05/24 10:35 36.2 C L 80 17 111/63 99 Oxymask 6 06/05/24 07:25 36.5 C 70 20 159/87 H 98 Room Air Pain Intensity Right Knee: Pain Intensity: 4 Transfer of Care Handoff Completed per policy Notes Mental Status: alert / awake / arousable and participated in evaluation Patient Amnestic to Procedure: Yes Nausea / Vomiting: adequately controlled Pain: adequately controlled Airway Patency, RR, SpO2: stable & adequate BP & HR: stable & adequate Hydration State: stable & adequate Anesthetic Complications: no major complications apparent and Pt Satisfied with anesthetic care
[2024-06-05] MEDS ORDERED: METOCLOPRAMIDE HCL INJ 5 MG/ML 2 ML VIAL IV PRN (13:43)
[2024-06-05] MEDS ORDERED: bisacodyL 10 MG SUPP PR PRN (13:43)
[2024-06-05] MEDS ORDERED: HYDROmorphone INJ 0.5 MG/0.5 ML SYR IV PRN (13:43)
[2024-06-05] MEDS ORDERED: ONDANSETRON INJ 2 MG/ML 2 ML VIAL IV PRN (13:43)
[2024-06-05] MEDS ORDERED: MAGNESIUM HYDROXIDE SUSP 30 ML UDC PO PRN (13:43)
[2024-06-05] MEDS ORDERED: NALOXONE HCL 0.4 MG/1 ML VIAL/CARP IV PRN (13:43)
[2024-06-05] MEDS ORDERED: ALBUTEROL HFA 8 GM INHALER INH PRN (13:43)
[2024-06-05] MEDS: SODIUM CHLORIDE 0.9% 1,000 ML IV SCH (14:15)
--- NOTE | 2024-06-05 14:36 | XRay Report ---
XR knee RT 1 or 2V routine CLINICAL HISTORY: Postoperative evaluation. COMPARISON: Right knee radiographs December 25, 2023. FINDINGS: Alignment of the total right knee arthroplasty is anatomic. There is no periprosthetic fra cture or unexpected radiopaque foreign body. There are skin joanna. IMPRESSION: Expected findings following total right knee arthroplasty. ACT 112: Negative or not required by law. Electronically signed by: Cristian Cortez M.D. 06/05/2024 2:35 PM
[2024-06-05] MEDS: CARBIDOPA/LEVODOPA 25/100MG TAB PO SCH (15:18)
[2024-06-05] MEDS: KETOROLAC TROMETHAMINE 15 MG/ML VIAL IV SCH (15:18)
[2024-06-05] MEDS: oxyCODONE HCL IR 5 MG TAB (IMMEDIATE RELEASE) PO PRN (20:48)
[2024-06-05 21:48] VITALS: RESP 16
[2024-06-05] MEDS: TRIHEXYPHENIDYL HCL 2 MG TAB PO SCH (22:14)
[2024-06-05] MEDS: METOPROLOL TARTRATE 50 MG TAB PO SCH (22:15)
[2024-06-05] MEDS: FEXOFENADINE HCL 180 MG TAB PO SCH (22:15)
[2024-06-05] MEDS: DOCUSATE SODIUM 100 MG CAP PO SCH (22:15)
[2024-06-05] MEDS: SENNA 8.6 MG TAB PO SCH (22:15)
[2024-06-05] MEDS: LATANOPROST 0.005% OP SOLN 2.5 ML BTL OP SCH (23:17)
--- NOTE | 2024-06-06 06:53 | Orthopedic Progress Note ---
Date of Service June 06, 2024 Assessment & Plan (1) Status post right knee replacement: Overall he is doing very well. He is not having much pain in the right knee. He will be seen by physical therapy today for ambulation and range of motion exercises. He is on Eliquis for DVT prophylaxis. The nursing status change his dressing after physical therapy. He can be discharged to home later today. He will follow-up orthopedics in 2 weeks. Norman Aguilar was seen and examined at bedside this morning. Overall is doing very well. He is not having much pain in the right knee. He has been up and ambulating to the bathroom. He has no complaints.. Review of Systems All systems reviewed & are unremarkable except as noted in HPI & below. Physical Exam On physical examination of the right knee, the dressing is clean and dry. His leg is out full extension. He has active dorsiflexion plantarflexion of his right ankle.. Results & Data Results & Data Laboratory Results . Diagnostic Findings Postoperative x-rays of the right knee show the prosthesis to be in anatomic alignment without any evidence of fracture complication, or loosening.. PG Care Time/CCT Total # of Minutes Spent Total Time Spent with Patient: Total time spent is greater than 50% in coordination of care (as documented) at patient's floor/unit and/or counseling patient: Coding Level of Care Code 48039 Post Operative Follow-Up Diagnoses Status post right knee replacement Z96.651
--- NOTE | 2024-06-06 06:54 | Discharge Summary ---
Date of Service June 06, 2024 Principal Diagnosis Same as "Discharge Diagnosis" noted below under Discharge Instructions. Discharge Exam On physical examination of the right knee, the dressing is clean and dry. His leg is out full extension. He has active dorsiflexion plantarflexion of his right ankle.. Discharge Data Procedures Performed Operation Date: 06/05/24 09:00 Actual Procedures p Right Total Knee Arthroplasty(Right) - Walter Duron DO Ordered Studies 06/05/24 05:00 US - OR guided needle placemen Routine Hospital Course (1) Status post right knee replacement: On June 05, 2024 Jeff arrived at [facility] and underwent a right knee replacement without complication. He had a spinal anesthetic. Postoperatively he was started on Eliquis for DVT prophylaxis and transferred to the general orthopedic floors. His hospital course was uneventful. On postop day #1, his vital signs were stable and his pain was well-controlled. He was able to participate well with physical therapy doing ambulation and range of motion exercises. He was then discharged to home. He will follow-up with orthopedics in 2 weeks. PG Care Time/CCT Total # of Minutes Spent Total Time Spent with Patient: Total time spent is greater than 50% in coordination of care (as documented) at patient's floor/unit and/or counseling patient: Discharge Plan Discharge Items Patient Disposition: Home - Self-Care Reason For Visit: Degenerative Joint Disease Right Knee Discharge Diagnosis: Right knee replacement Activity: Per Instructions section Non-emergency contact: Surgeon Call non-emergency contact if: your wound has increased redness and your wound has increased drainage Follow-up/Referrals: Hannah Santos DO [Primary Care Provider] - Diet: Regular Addtl Attending Provider Instructions: Activity and Therapy Recommendations: * If you are using [facility] then therapy will be provided at your home until they feel you have accomplished all of your goals. * If you are using [facility] then Physical Therapy will be provided until they feel you are ready to start Outpatient Physical Therapy. * If you are not using home therapy then Outpatient Physical Therapy should start about 3-5 days from your day of surgery. Therapy will last about 6-10 weeks * It is important not to put a pillow under your knee when you are relaxing or sleeping. It is just as important to make sure you are getting your knee perfectly straight as it is to regain your knee bend. * You were shown a series of exercises in the hospital. Do these exercises three times each day including the exercises you were shown in physical therapy. * Get up and walk several times each day. For the first four weeks, try not to stand or walk for more than one hour at a time. If you do stand or walk for more than one hour, you will not hurt anything, but your leg will likely swell. * As you feel comfortable, you may change from the walker or crutches to a cane and then to independent walking. Medications: * Narcotic You will likely be sent home from the hospital with a prescription for the narcotic pain medication that worked best throughout your stay. * Cefadroxil -take the antibiotic twice a day for 10 days to help prevent infection. * Continue your Eliquis as prescribed. * Other medications may be prescribed for specific circumstances. If you have any questions, please call the office at . * Resume previous home medications unless otherwise instructed TEDs/Elastic Stockings: The white elastic stockings help limit swelling and prevent blood clots from forming in your legs.~ The more you wear them, the more they work. Wear them for six weeks. Dressing Care: The dressing can be changed after physical therapy on postop day #1. Daily dry dressing changes for a few days, especially if the incision is still draining some. If the incision is not draining then you may leave the joanna open to air. If there is a little bit of drainage or if the joanna are getting stuck on your clothing then cover the incision with a dry dressing. The joanna will be removed at your 2 week follow-up appointment. Showering: You may shower 5 days from the day of surgery as long as the incision is no longer draining. You may shower with the joanna exposed. Let soapy water run over the joanna and pat them dry. Do not scrub or soak the incision. Diet: You may resume your previous diet. Things To Watch For: * Drainage from the incision site that occurs more than one week after your surgery. * Increased redness at the incision site. * Fever above 102 degrees Fahrenheit. * Unusual chest pain or shortness of breath. * Call [facility] at with any of the above problems Follow-Up Visit: Follow-up with Dr. Duron's PA (Walter Hillman) 2-3 weeks after your day of surgery. He will remove your joanna and answer any questions. If you have any additional questions or concerns, Dr Duron is usually in the office at the same time and will be available An appointment was probably scheduled when you signed-up for surgery in the office. If you have any questions call Office Instructions: More detailed instructions as well as Frequently Asked Questions were provided in a folder by our office when you signed-up for surgery. Please review these instructions when you get home. If you have any further questions or concerns, please feel free to call the office at [phone] Pending Studies at Discharge: No Stand-Alone Forms: My [employer], Smoking Cessation Medications and DC Order Prescriptions: New oxycodone 5 mg Tablet 5 mg PO Q4H PRN (Reason: pain) Qty: 30 0RF cefadroxil 500 mg capsule 500 mg PO BID 10 Days Qty: 20 0RF Continued (DME) 3-in-1 Commode Misc See Rx Instructions .MEDSUPPLY Qty: 1 0RF Rx Instructions: As directed Eliquis 2.5 mg tablet 2.5 mg PO BID Nexletol 180 mg tablet 180 mg PO QAM metoprolol tartrate 50 mg tablet 50 mg PO BID carbidopa-levodopa [Sinemet] 25-100 mg tablet 1 tab PO TID zinc sulfate 50 mg zinc (220 mg) capsule 50 mg PO HS ascorbic acid (vitamin C) 500 mg capsule 500 mg PO QAM cholecalciferol (vitamin D3) 125 mcg (5,000 unit) capsule 125 mcg PO QAM aspirin [Aspir-81] 81 mg tablet,delayed release (DR/EC) 81 mg PO QAM esomeprazole magnesium [Nexium] 40 mg capsule,delayed release(DR/EC) 40 mg PO QAM ramipril [Altace] 2.5 mg capsule 5 mg PO QAM latanoprost 0.005 % Drops 1 drp OPHTHALMIC (EYE) QPM Patient Comments: BOTH EYES trihexyphenidyl 2 mg Tablet 2 mg PO BID Ocutabs Tablet 1 tab PO QAM albuterol 90 mcg/actuation Aerosol 90 mcg INHALATION UD PRN (Reason: allergies) Patient Comments: not much use/no recent fexofenadine [Myesha] 180 mg Tablet 180 mg PO HS ferrous sulfate 325 mg (65 mg iron) Tablet 325 mg PO QAM Discharge Orders: Discharge Order (Routine); Ordered 06/06/24 Ordered By: Walter Duron Admission Data Admit Date/Time: 06/05/24 10:45 Attending Provider: Walter Duron Admit Provider: Walter Duron Primary Care Provider: Hannah Santos
[2024-06-06 07:41] VITALS: BP 128/70; PULSE 59; TEMP 97.5; O2SAT 96
[2024-06-06] MEDS: MULTIVITAMIN TAB PO SCH (08:10)
[2024-06-06] MEDS: FERROUS SULFATE 325 MG TAB PO SCH (08:10)
[2024-06-06] MEDS: ASPIRIN 81 MG ECTAB PO SCH (08:10)
[2024-06-06] MEDS: ENALAPRIL MALEATE 10 MG TAB PO SCH (08:11)
[2024-06-06] MEDS: dexAMETHasone 4 MG TAB PO SCH (08:11)
[2024-06-06] MEDS: APIXABAN 2.5 MG TAB PO SCH (10:38)
== END 2024-06-06 12:00 | disposition home health service (06) ==
LOC: ASU 06:29 → PACUINP 06:29 → 3E 13:42